=== PATIENT | female | born 1985 | race Caucasian/White ===

== ENCOUNTER 2024-02-16 10:34 | Outpatient (CLI) | payer BC ==
[2024-02-16 12:40] LABS: Hematocrit 39.3 % (34.9-44.5); Mean Corpuscular HGB CONC 35.6 g/dL (32.0-36.0); Mean Corpuscular Hemoglobin 31.7 pg (27.0-33.0); Mean Corpuscular Volume 89.1 fl (81.6-98.3); Mean Platelet Volume 10.3 fl (7.4-10.4); Platelet Count 270 10x3/uL (150-450); RBC Distribution Width 11.8 % (11.5-14.5); Red Blood Cell (RBC) Count 4.41 10x6/uL (3.90-5.03); White Blood Cell (WBC) Count 8.2 10x3/uL (3.5-10.5)
[2024-02-16 13:10] LABS: Anion Gap 15 mmol/L (10-20); BUN (Urea Nitrogen) 11 mg/dL (7.0-18.7); Calc. Creatinine Clearance 0 mL/min (70-130); Calcium 10.2 mg/dL (7.8-10.44); Carbon Dioxide 26 mmol/L (22-29); Chloride 101 mmol/L (98-107); Estimated GFR 107; Glucose 83 mg/dL (70-105); Sodium 138 mmol/L (136-145)
== END 2024-02-16 10:35 | disposition home or self-care (01) ==
LOC: EDSEX 10:34 → CSHLAB 10:34
PROVIDERS: ATTEND Surgery
DX: Z01.818 Encounter for other preprocedural examination (principal); K80.20 Calculus of gallbladder without cholecystitis without obstruction
CPT/HCPCS: 80048; 85027; 93005; 93010

== ENCOUNTER 2024-02-17 11:50 | Day surgery (SDC) | payer BC ==
[2024-02-16 11:04] VITALS: BMI 32.9
[2024-02-17] MEDS ORDERED: Indocyanine Green 25 MG/10 ML VIAL ONE (12:15)
[2024-02-17] MEDS ORDERED: Famotidine/PF 20 mg/2ml Vial ONE (12:54)
[2024-02-17] MEDS ORDERED: Scopolamine 1 mg/72 hour Patch ONE (12:54)
[2024-02-17] MEDS ORDERED: Midazolam HCl 2 mg/2 ml Vial ONE (12:54)
[2024-02-17] MEDS ORDERED: Bupivacaine PF 0.5% 30 ML VIAL ONE (12:59)
[2024-02-17] MEDS ORDERED: EPINEPHrine 1 MG/ML VIAL ONE (12:59)
[2024-02-17] MEDS ORDERED: CEFAZOLIN 2 GM VIAL ONE (13:12)
[2024-02-17] MEDS ORDERED: Rocuronium Bromide 10 MG/ML (10ML VIAL) ONE (13:18)
[2024-02-17] MEDS ORDERED: fentaNYL 50 mcg/mL 1 mL Vial ONE (13:18)
[2024-02-17] MEDS ORDERED: Dexamethasone 4 mg/ml Vial ONE (13:18)
[2024-02-17] MEDS ORDERED: Ondansetron PF 4 MG/2 ML Vial ONE ×2 (13:18→15:00)
[2024-02-17] MEDS ORDERED: Lidocaine 1% PF 5 ML VIAL ONE (13:19)
[2024-02-17] MEDS ORDERED: HYDROmorphone 0.5 MG/0.5 ML SYRINGE ONE (14:08)
[2024-02-17] MEDS ORDERED: traMADol HCl 50 MG TAB PO PRN (14:38)
[2024-02-17] MEDS ORDERED: Hydrocodone-Acetamin 15 ML UDCUP ONE (15:06)
== END 2024-02-17 16:50 | disposition home or self-care (01) ==
LOC: EDSEX → CSHSDC 11:50
PROVIDERS: ATTEND Surgery
PROC: 0FT44ZZ Resection of Gallbladder, Percutaneous Endoscopic Approach (ICD-10-PCS; principal; 2024-02-17)
DX: K80.10 Calculus of gallbladder with chronic cholecystitis without obstruction (principal); K82.8 Other specified diseases of gallbladder; E78.00 Pure hypercholesterolemia, unspecified; F41.9 Anxiety disorder, unspecified; I10 Essential (primary) hypertension; K21.9 Gastro-esophageal reflux disease without esophagitis; Z88.5 Allergy status to narcotic agent; Z79.899 Other long term (current) drug therapy
CPT/HCPCS: 88304; C1889; J0171; J0665; J1100; J1170; J2250; J2405; J3010; S0028

== ENCOUNTER 2024-03-21 11:42 | Day surgery (SDC) | payer BC ==
[2024-03-20 13:20] VITALS: BMI 32.5
[2024-03-21] MEDS ORDERED: PROPOFOL 20 ML ONE ×2 (13:22→13:49)
[2024-03-21] MEDS ORDERED: Lidocaine 1% PF 5 ML VIAL ONE (13:44)
== END 2024-03-21 14:45 | disposition home or self-care (01) ==
LOC: CSHSDC 11:42
PROVIDERS: ATTEND Surgery
PROC: 0DB68ZX Excision of Stomach, Via Natural or Artificial Opening Endoscopic, Diagnostic (ICD-10-PCS; principal; 2024-03-21)
DX: K29.50 Unspecified chronic gastritis without bleeding (principal); K31.89 Other diseases of stomach and duodenum; K44.9 Diaphragmatic hernia without obstruction or gangrene; K22.89 Other specified disease of esophagus; K21.9 Gastro-esophageal reflux disease without esophagitis; F41.9 Anxiety disorder, unspecified; E78.00 Pure hypercholesterolemia, unspecified; E66.01 Morbid (severe) obesity due to excess calories; Z68.34 Body mass index [BMI] 34.0-34.9, adult; Z98.84 Bariatric surgery status; Z88.5 Allergy status to narcotic agent; Z79.899 Other long term (current) drug therapy
CPT/HCPCS: 88305; 88342; J2704

== ENCOUNTER 2024-09-11 08:45 | Observation (INO) | payer BC ==
[2024-09-11] MEDS ORDERED: Lorazepam 2 MG/ML VIAL ONE (09:01)
[2024-09-11] MEDS ORDERED: Morphine 4 MG/ML VIAL ONE (09:01)
[2024-09-11] MEDS ORDERED: Ondansetron PF 4 MG/2 ML Vial ONE (09:02)
[2024-09-11 09:26] LABS: #Basophils 0.01 10x3/uL (0.0-0.2); #Monocytes 0.29 10x3/uL (0.0-1.1); #Neutrophils 9.91 10x3/uL (1.5-8.4); %Basophils 0.1 % (0.0-2.0); %Monocytes 2.5 % (0.0-10.0); %Neutrophils 86.9 % (40.0-75.0); Hematocrit 34.7 % (34.9-44.5); Hemoglobin 11.9 g/dL (12.0-15.5); Mean Corpuscular HGB CONC 34.3 g/dL (32.0-36.0); Mean Corpuscular Hemoglobin 29.6 pg (27.0-33.0); Mean Corpuscular Volume 86.3 fL (81.6-98.3); Mean Platelet Volume 9.4 fL (7.4-10.4); Platelet Count 371 10x3/uL (150-450); RBC Distribution Width 12.1 % (11.5-14.5); Red Blood Cell (RBC) Count 4.02 10x6/uL (3.90-5.03); White Blood Cell (WBC) Count 11.4 10x3/uL (3.5-10.5)
[2024-09-11 09:31] LABS: BHCG - Serum Negative (NEGATIVE); Pregs Control Background? CLEAR/WHITE (CLR/WHITE); Pregs Control Bar Appear? YES (CONTROL BAR)
[2024-09-11 09:39] LABS: ALT (SGPT) 24 U/L (8-55); AST (SGOT) 27 U/L (5-34); Albumin 4.4 g/dL (3.5-5.0); Alkaline Phosphatase 82 U/L (40-110); Anion Gap 18 mmol/L (10-20); BUN (Urea Nitrogen) 11 mg/dL (7.0-18.7); Bilirubin, Total 0.5 mg/dL (0.2-1.2); Calc. Creatinine Clearance 0 mL/min (70-130); Calcium 10.2 mg/dL (7.8-10.44); Carbon Dioxide 17 mmol/L (22-29); Chloride 109 mmol/L (98-107); Estimated GFR 113; Globulin 3.5 g/dL (2.4-3.5); Glucose 141 mg/dL (70-105); Potassium 4.2 mmol/L (3.5-5.1); Protein, Total 7.9 g/dL (6.0-8.3); Sodium 140 mmol/L (136-145)
[2024-09-11 09:43] LABS: Troponin I Less than 0.010 ng/mL (< 0.028)
[2024-09-11 09:50] LABS: INR-International Normal Ratio 1.1; PTT 28.2 sec (22.0-33.0); Prothrombin Time 11.5 sec (9.5-12.1)
[2024-09-11] MEDS ORDERED: Ketorolac Tromethamine 30 MG (1 mL) VIAL ONE (10:24)
[2024-09-11] MEDS ORDERED: Thiamine HCl 200 MG/2 ML VIAL SLOW IVP SCH (13:00)
[2024-09-11] MEDS ORDERED: Folic Acid 1 MG, Multivitamins, Adult 10 ML in Dextrose 5 %-0.45 % NaCl 1,000 ML IV SCH (13:00)
[2024-09-11 14:49] VITALS: BMI 35.9
[2024-09-11] MEDS: Multivitamins, Adult 10 ML, Thiamine HCl 100 MG, Folic Acid 1 MG in Dextrose 5 %-0.45 %... IV SCH (14:55)
[2024-09-11] MEDS ORDERED: Glucagon 1 MG/ML KIT IM PRN (17:35)
[2024-09-11] MEDS ORDERED: Dextrose 5% in Water 1,000 ML IV PRN (17:35)
[2024-09-11] MEDS ORDERED: Ipratropium/Albuterol 3 ML NEB NEB PRN (17:35)
[2024-09-11] MEDS ORDERED: diphenhydrAMINE 50 MG/ML VIAL IVP PRN (17:35)
[2024-09-11] MEDS ORDERED: hydrALAZINE 20 MG/ML VIAL SLOW IVP PRN (17:35)
[2024-09-11] MEDS ORDERED: Promethazine HCl 25 MG/ML VIAL IM PRN (17:35)
[2024-09-11] MEDS ORDERED: Dextrose 50% Abboject 50 ML SYRINGE SLOW IVP PRN (17:35)
[2024-09-11] MEDS ORDERED: Ondansetron PF 4 MG/2 ML Vial IVP PRN (17:35)
[2024-09-11] MEDS: D5 1/2 NS w/20 mEq KCL 1,000 ML IV SCH (18:24)
[2024-09-11] MEDS: Acetaminophen 325 MG TAB PO PRN (20:37)
[2024-09-11] MEDS: Venlafaxine HCl XR 75 MG CAP PO SCH (20:37)
[2024-09-12] MEDS ORDERED: Non-Formulary Medication 1 EACH (Lisdexamfetamine Dimesylate [Vyvanse] 60 MG Capsule) PO SCH (09:00)
[2024-09-12] MEDS: Ibuprofen 200 MG TAB PO SCH (09:11)
[2024-09-12] MEDS: Pantoprazole 40 MG VIAL IVP SCH (09:11)
[2024-09-12 11:23] VITALS: TEMP 97.6
[2024-09-12 19:26] VITALS: BP 104/68
[2024-09-12] MEDS ORDERED: Amitriptyline HCl 25 MG TAB PO SCH (21:00)
== END 2024-09-12 11:05 | disposition home or self-care (01) ==
LOC: CSHERS 08:45 → CSHTELE 14:26
PROVIDERS: ADMIT Surgery; ATTEND Surgery
DX: K56.690 Other partial intestinal obstruction (principal); F32.A Depression, unspecified; F41.9 Anxiety disorder, unspecified; E66.01 Morbid (severe) obesity due to excess calories; Z98.84 Bariatric surgery status; Z88.5 Allergy status to narcotic agent; Z79.899 Other long term (current) drug therapy
CPT/HCPCS: 36415; 74177; 80053; 83605; 84484; 84703; 85025; 85610; 85730; 93005; 94760; 94762; 96374; 96375; 96376; G0378; J1885; J2060; J2272; J2405; J2470; J3411; J3480; J7042

== ENCOUNTER 2024-11-03 12:20 | Outpatient (CLI) | payer BC | END 2024-11-03 12:21 | disposition home or self-care (01) | LOC: CSHLAB 12:20 | PROVIDERS: ATTEND Surgery | DX: Z01.818 Encounter for other preprocedural examination (principal); R19.8 Other specified symptoms and signs involving the digestive system and abdomen | CPT/HCPCS: 93005; 93010 ==